=== PATIENT | female | born 1955 | race Caucasian/White ===

== ENCOUNTER 2020-03-28 22:49 | Emergency (ER) | payer OTHER ==
[~2020-03-28] VITALS: Ht 149.9 cm; Wt 54.4 kg
--- NOTE | 2020-03-28 22:52 | NUR ---
PT TAKEN TO BED 9 VIA GURNEY WITH ASSISTANCE FROM EMS. PT PLACED ON LOGISTICS ASSOCIATE.
--- NOTE | 2020-03-28 22:53 | NUR ---
20G PLACED IN L AC. PT BS: 58 PRIOR TO ARRIVAL EMS GAVE ORAL GLUCOSE. EMS RECHECKED BS: 67.
--- NOTE | 2020-03-28 23:00 | NUR ---
64 Y/O FEMALE BIBA FOR C/O HTN AND ANXIETY X 1 DAY. PER EMS PRIOR TO ARRIVAL PT GLUCOSE 58. PT GIVEN ORAL GLUCOSE AND 20G IN L AC PLACED. PT A&O X 4. RESPIRATIONS ARE EVEN AND UNLABORED SKIN IS WARM AND DRY TO TOUCH. PT ADMITS TO "FEELING NERVOUS AND SAD." PER PT SHE LOST FAMILY FRIEND EARLIER THIS WEEK AND HAD DECREASED APPETITE TODAY. PER RPORT FROM HER DAUGHTER PT ALSO HAS NEW RX FOR BP AND DM. CURRENT ACCUCKECK: 77. DENIES HAVING ANY N/V/D; PT DENIES ANY FEVER, CP, SOB, OR COUGH AT THIS TIME. PT PLACED ON BLOCK OPERATOR. BED IS LOCKED AND IN LOWEST POSTION. MEDHX: MDD, ANXIETY, DM TYPE II, HTN, DIABETIC NEUROPATHY ALLERGIES: PCN
[2020-03-28 23:02] VITALS: BP 184/82
--- NOTE | 2020-03-28 23:19 | NUR ---
EMERGENCY CONTACT: FELA [phone]
--- NOTE | 2020-03-29 00:03 | NUR ---
Justin correia in ED - 03/29/20 at 0003 by NICO Female [employer] Supervisor accompanied female patient for Pelvic Exam with ERMD.
[2020-03-29] MEDS ORDERED: LORazepam 0.5 MG TAB PO ONE (00:10)
--- NOTE | 2020-03-29 00:12 | NUR ---
ERMD AT BEDSIDE.
--- NOTE | 2020-03-29 00:21 | NUR ---
CALLED DAUGHTER TO GET MED REC. PT UNABLE TO REMEMBER NAMES AND DOSAGES OF MEDICTIONS. DAUGHTER STATED SHE WILL CALL BACK WITH INFORMATION.
--- NOTE | 2020-03-29 00:32 | NUR ---
LAB AT BEDSIDE.
[2020-03-29 00:42] LABS: BASOPHILS % (AUTO) 0.4 % (0.0-2.0); EOSINOPHILS % (AUTO) 0.6 % (0.0-4.0); HEMATOCRIT 29.4 % (36-48); HEMOGLOBIN 9.7 g/dL (12.0-16.0); LYMPHOCYTES # (AUTO) 1.5 K/uL (2.5-16.5); LYMPHOCYTES % (AUTO) 19.5 % (20.5-51.1); MEAN CORPUSCULAR HEMOGLOBIN 28 pg (27-31); MEAN CORPUSCULAR HGB CONC 33 g/dL (33-37); MEAN CORPUSCULAR VOLUME 85.5 fL (80-94); MONOCYTES # (AUTO) 0.4 K/uL (0.8-1.0); MONOCYTES % (AUTO) 5.3 % (1.7-9.3); NEUTROPHILS # (AUTO) 5.6 K/uL (1.8-7.7); NEUTROPHILS % (AUTO) 74.2 % (42.2-75.2); PLATELET COUNT (AUTO) 326 K/uL (140-450); RED BLOOD CELL COUNT(AUTO) 3.43 MIL/uL (4.20-5.40); RED CELL DISTRIBUTION WIDTH 14.7 % (11.6-13.7); WHITE BLOOD COUNT (AUTO) 7.6 K/uL (4.8-10.8)
[2020-03-29 00:58] LABS: ALBUMIN 3.5 g/dL (3.4-5.0); ANION GAP 15.8 (8-16); CARBON DIOXIDE 23.2 mmol/L (21-32); CREATININE 1.5 mg/dL (0.6-1.3); TOTAL BILIRUBIN 0.1 mg/dL (0.0-1.0)
--- NOTE | 2020-03-29 01:45 | NUR ---
IV removed, catheter intact and site benign. Applied folded 4x4 gauze and tape to stop bleeding.
[2020-03-29 01:53] VITALS: BP 152/72
--- NOTE | 2020-03-29 01:53 | NUR ---
Patient discharged with v/s stable. Written and verbal after care instructions given and explained. Patient verbalized understanding. Ambulatory with steady gait. All questions addressed prior to discharge. Advised to follow up with PMD. MENTAL HEALTH RESOURCES ALSO PROVIDED FOR PT.
== END 2020-03-29 01:53 | disposition home or self-care (01) ==
LOC: MED 22:49
DX: R53.1 Weakness (principal); E11.65 Type 2 diabetes mellitus with hyperglycemia; I10 Essential (primary) hypertension; N17.9 Acute kidney failure, unspecified; Z88.0 Allergy status to penicillin
CPT/HCPCS: 36415; 80053; 81002; 84484; 85025; 93005; 99283; 99284

== ENCOUNTER 2023-12-05 21:12 | Emergency (ER) | payer OTHER ==
[~2023-12-05] VITALS: Ht 152.4 cm; Wt 53.5 kg
[2023-12-05 21:50] VITALS: BP 184/70; PULSE 62; RESP 18; TEMP 98; O2SAT 98
[2023-12-05 23:08] LABS: BASOPHILS # (AUTO) 0.1 K/uL (0.00-0.22); BASOPHILS % (AUTO) 0.8 % (0.0-2.0); EOSINOPHILS # (AUTO) 0.3 K/uL (0-0.4); EOSINOPHILS % (AUTO) 3.1 % (0.0-4.0); HEMATOCRIT 33.8 % (36-48); HEMOGLOBIN 11.2 g/dL (12.0-16.0); LYMPHOCYTES # (AUTO) 2.7 K/uL (2.5-16.5); LYMPHOCYTES % (AUTO) 30.8 % (20.5-51.1); MEAN CORPUSCULAR HEMOGLOBIN 29 pg (27-31); MEAN CORPUSCULAR HGB CONC 33 g/dL (33-37); MEAN CORPUSCULAR VOLUME 86.4 fL (80-94); MONOCYTES # (AUTO) 0.6 K/uL (0.8-1.0); MONOCYTES % (AUTO) 7.1 % (1.7-9.3); NEUTROPHILS % (AUTO) 58.2 % (42.2-75.2); PLATELET COUNT (AUTO) 258 K/uL (140-450); RED BLOOD CELL COUNT(AUTO) 3.91 MIL/uL (4.20-5.40); RED CELL DISTRIBUTION WIDTH 14.3 % (11.6-13.7); WHITE BLOOD COUNT (AUTO) 8.7 K/uL (4.8-10.8)
[2023-12-05 23:25] LABS: ANION GAP 9.2 (8-16); CALCIUM 10.5 mg/dL (8.5-10.1); CARBON DIOXIDE 26.7 mmol/L (21-32); CREATININE 1.5 mg/dL (0.6-1.3); POTASSIUM 3.9 mmol/L (3.5-5.1)
[2023-12-05 23:37] LABS: APPEARANCE,URINE CLEAR (CLEAR); BILIRUBIN,URINE NEGATIVE (NEGATIVE); BLOOD, URINE NEGATIVE (NEGATIVE); COLOR,URINE YELLOW (YELLOW); LEUKOCYTE ESTERASE ,URINE NEGATIVE (NEGATIVE); NITRITE, URINE NEGATIVE (NEGATIVE); PROTEIN,URINE NEGATIVE (NEGATIVE); UGLUCOSE 1+ (NEGATIVE); UROBILINOGEN,URINE 0.2 EU/dL (0.2 - 1)
[2023-12-06 02:14] VITALS: BP 162/72; PULSE 65; RESP 18; TEMP 98.2; O2SAT 98
== END 2023-12-06 02:14 | disposition home or self-care (01) ==
LOC: MED 21:12
DX: I10 Essential (primary) hypertension (principal); E86.0 Dehydration; Z91.148 Patient's other noncompliance with medication regimen for other reason; E11.9 Type 2 diabetes mellitus without complications
CPT/HCPCS: 36415; 80048; 81003; 84484; 85025; 93005; 99284